=== PATIENT | female | born 1970 | race African-American/Black ===

== ENCOUNTER 2023-10-28 03:43 | Emergency (ER) | payer OTHER ==
[~2023-10-28] VITALS: Ht 165.1 cm; Wt 70.0 kg
[2023-10-28 03:47] VITALS: O2SAT 100
[2023-10-28] MEDS ORDERED: SODIUM CHLORIDE 0.9% 1,000 ML IV ONE (05:45)
[2023-10-28 05:49] LABS: BASOPHILS % 0.6 % (0.0-2.0); HEMATOCRIT. 40.3 % (36.0-48.0); HEMOGLOBIN. 13.5 g/dL (12.0-16.0); LYMPHOCYTES % 27.7 % (20.0-50.0); MEAN CORPUSCULAR HEMOGLOBIN 31.6 pg (28.0-32.0); MEAN CORPUSCULAR HGB CONC 33.4 g/dL (31.0-37.0); MEAN CORPUSCULAR VOLUME 94.5 fL (81.0-99.0); MEAN PLATELET VOLUME 9.3 fl (7.4-10.4); MONOCYTES % 6.2 % (2.0-8.0); NEUTROPHILS % 63.5 % (40.0-76.0); PLATELET 222 x1000/uL (130-400); RED BLOOD CELL COUNT 4.27 mill/uL (4.2-5.4); RED CELL DISTRIBUTION WIDTH 13.8 % (11.6-14.6); WHITE BLOOD COUNT 6.4 x1000/uL (4.5-11.0)
[2023-10-28] MEDS ORDERED: MECLIZINE 25MG TABLET PO NR (07:00)
[2023-10-28 07:02] LABS: HCG SCREEN NEGATIVE
[2023-10-28 09:42] LABS: ALANINE AMINOTRANSFERASE 16 IU/L (10-49); ALBUMIN 4.2 g/dL (3.2-4.8); ASPARTATE AMINOTRANSFERASE 30 IU/L (<34); BILIRUBIN TOTAL 0.5 mg/dL (0.1-1.0); CALCIUM 9.3 mg/dL (8.7-10.4); CARBON DIOXIDE 20 mEq/L (21-32); CHLORIDE 106 mEq/L (98-107); CREATININE 0.6 mg/dL (0.6-1.0); GLUCOSE 95 mg/dL (70-105); POTASSIUM 5.2 mEq/L (3.5-5.1); PROTEIN TOTAL 6.6 g/dL (6.0-8.3); SODIUM 141 mEq/L (136-145); TROPONIN I HIGH SENSITIVITY 4 ng/L (3.0-34); UREA NITROGEN BLOOD 11 mg/dL (9-23)
[2023-10-28] MEDS ORDERED: ASPIRIN 325MG EC TABLET PO NR (11:45)
[2023-10-28] MEDS ORDERED: MECLIZINE 25MG TABLET PO ONE (11:45)
[2023-10-28 11:52] LABS: CARBON DIOXIDE 31 mEq/L (21-32); CHLORIDE 107 mEq/L (98-107); CREATININE 0.5 mg/dL (0.6-1.0); GLUCOSE 79 mg/dL (70-105); POTASSIUM 3.8 mEq/L (3.5-5.1); SODIUM 142 mEq/L (136-145); UREA NITROGEN BLOOD 9 mg/dL (9-23)
[2023-10-28 12:30] VITALS: BP 118/73; PULSE 63; RESP 13; TEMP 97.6
[2023-10-28] MEDS ORDERED: MECLIZINE 12.5MG TABLET PO NR (13:00)
== END 2023-10-28 13:39 | disposition short-term general hospital (02) ==
LOC: ER 04:06 → EDBEDREQ 10:51 → CANBEDREQ 11:49 → ER 13:39
DX: R42 Dizziness and giddiness (principal)
CPT/HCPCS: 80053; 80048; 84703; 83880; 85025; 84484; 36415; 71045; 70450; 93005; 96360; 99285; J8597; J7030; Z7610 ×2